=== PATIENT | female | born 1970 | race Caucasian/White ===

== ENCOUNTER → 2021-12-07 | Outpatient (CLI) | payer MEDICARE, OTHER ==
[~2021-12-07] MED LIST: ARTHRITIS PAI42.5 GM TOP; BASAGLAR K100 UNIT/1 SC; CYMBALTA 30 MG30 MG PO; HUMALOG100 UNIT/3 SC; LIPITOR40 MG PO; LOPRESSOR 25 MG25 MG PO; MACROBID 100 M100 MG PO; MAGOX 400400 MG PO; METFORMIN HCL500 M2 PO; MIDODRINE HCL5 MG PO; NEURONTIN800 MG PO; NITROSTAT0.4 MG SL; TYLENOL EXTRA500 MG PO; ZOFRAN 4 MG TAB4 MG PO
== END | disposition home or self-care (01) ==
LOC: RAD 11-16 09:00 → CT 11-16 10:00 → RAD 10:00
DX: M25.512 Pain in left shoulder (principal); M79.642 Pain in left hand
CPT/HCPCS: 73040; 73200; Q9967